=== PATIENT | male | born 1940 | race African-American/Black ===

== ENCOUNTER 2018-04-25 05:21 | Inpatient (IN) ==
[2018-04-25] MEDS ORDERED: MAGNESIUM SULF RIDER 2 GM in PREMIX 1 EACH IV PRN (06:03)
[2018-04-25] MEDS ORDERED: POTASSIUM CHLORIDE RIDER 10 MEQ in PREMIX 1 EACH IV PRN (06:03)
[2018-04-25] MEDS ORDERED: ASPIRIN 325 MG TABLET PO ONE (07:00)
[2018-04-25] MEDS ORDERED: diphenhydrAMINE CAP 25 MG CAPSULE PO ONE (07:00)
[2018-04-25] MEDS ORDERED: DIAZEPAM 5 MG TABLET PO ONE (07:00)
[2018-04-25] MEDS ORDERED: diphenhydrAMINE CAP 25 MG CAPSULE ONE (07:22)
[2018-04-25] MEDS ORDERED: DIAZEPAM 5 MG TABLET ONE (07:22)
[2018-04-25] MEDS ORDERED: ASPIRIN 325 MG TABLET ONE (07:22)
[2018-04-25] MEDS: SODIUM CHLORIDE 0.9% 1,000 ML IV SCH ×2 (07:25→20:44)
[2018-04-25 07:36] LABS: Basophils % 0.5 % (0.0-0.8); Eosinophils # 0.3 10*3/uL (0.0-0.87); Eosinophils % 4.6 % (0.00-10.9); Hematocrit 41.3 VOL% (42.0-52.0); Hemoglobin 13.8 GM/DL (14.0-18.0); Immature Granulocytes % 0.5 %; Immature Granulocytes Absolute 0.03 #; Lymphocytes # 1.8 10*3/uL (1.4-4.0); Lymphocytes % 28.6 % (21.2-54.2); Mean Corpuscular HGB Conc 33.4 GM/DL (32-36); Mean Corpuscular Hemoglobin 30 PG (27-34); Mean Corpuscular Volume 88.2 FL (87-102); Mean Platelet Volume 9.8 FL (9.6-12.0); Monocytes # 0.8 10*3/uL (0.11-0.8); Monocytes % 11.9 % (1.7-12.7); Neutrophils # 3.4 10*3/uL (1.4-7.4); Neutrophils % 53.9 % (38.7-73.9); Platelet Count 203 T/CUMM (130-400); Red Blood Count 4.68 MC/CUMM (3.8-5.5); Red Cell Distribution Width 14.1 % (9.3-17.3); White Blood Count 6.3 T/CUMM (4-12)
[2018-04-25 07:46] LABS: INR 1.1; PT Patient Result 11.2 SECS
[2018-04-25] MEDS ORDERED: HEPARIN/NACL 0.9% 2 UNITS/ML 1,000 ML IV ONE (09:11)
[2018-04-25] MEDS ORDERED: MIDAZOLAM 2 MG/2 ML VIAL ONE (09:17)
[2018-04-25] MEDS ORDERED: LIDOCAINE 1% 20 ML VIAL ONE (09:17)
[2018-04-25] MEDS ORDERED: fentaNYL 100 MCG/2 ML VIAL ONE (09:17)
[2018-04-25] MEDS ORDERED: NITROGLYCERIN SL 0.4 MG TABLET SL ONE ×3 (10:19→11:54)
[2018-04-25] MEDS ORDERED: ONDANSETRON 4 MG/2 ML VIAL IV PRN (10:26)
[2018-04-25] MEDS ORDERED: ZALEPLON 5 MG CAPSULE PO PRN (10:26)
[2018-04-25] MEDS ORDERED: ALBUTEROL/IPRATROPIUM 3 ML NEB RESP TX PRN (10:30)
[2018-04-25] MEDS ORDERED: NITROGLYCERIN SL 0.4 MG TABLET SL PRN (10:30)
[2018-04-25] MEDS: FUROSEMIDE 20 MG TABLET PO SCH (14:29)
[2018-04-25] MEDS: METOPROLOL TARTRATE 50 MG TABLET PO SCH (20:43)
[2018-04-26] MEDS: SODIUM CHLORIDE 0.9% 1,000 ML IV SCH ×3 (03:51→23:48)
[2018-04-26 05:14] LABS: Basophils % 0.6 % (0.0-0.8); Eosinophils # 0.3 10*3/uL (0.0-0.87); Hematocrit 39.8 VOL% (42.0-52.0); Hemoglobin 13.1 GM/DL (14.0-18.0); Immature Granulocytes % 0.6 %; Immature Granulocytes Absolute 0.04 #; Lymphocytes # 1.2 10*3/uL (1.4-4.0); Lymphocytes % 17.1 % (21.2-54.2); Mean Corpuscular HGB Conc 32.9 GM/DL (32-36); Mean Corpuscular Hemoglobin 30 PG (27-34); Mean Corpuscular Volume 89.8 FL (87-102); Mean Platelet Volume 10.1 FL (9.6-12.0); Monocytes # 0.7 10*3/uL (0.11-0.8); Monocytes % 10.3 % (1.7-12.7); Neutrophils # 4.5 10*3/uL (1.4-7.4); Neutrophils % 67.4 % (38.7-73.9); Platelet Count 175 T/CUMM (130-400); Red Blood Count 4.43 MC/CUMM (3.8-5.5); Red Cell Distribution Width 14.2 % (9.3-17.3); White Blood Count 6.7 T/CUMM (4-12)
[2018-04-26 05:26] LABS: Calcium 8.4 MG/DL (8.5-10.1); Osmolality,Calculated 281.1 MOS/KG (273-304); Potassium 3.8 MMOL/L (3.5-5.1)
[2018-04-26] MEDS: FUROSEMIDE 20 MG TABLET PO SCH (08:11)
[2018-04-26] MEDS: PRAVASTATIN 40 MG TABLET PO SCH (08:11)
[2018-04-26] MEDS: METOPROLOL TARTRATE 50 MG TABLET PO SCH ×2 (08:11→21:08)
[2018-04-26] MEDS: ASPIRIN 325 MG TABLET PO SCH (08:11)
[2018-04-26] MEDS ORDERED: DEXTROSE 50% 25 GM/50 ML VIAL IV PRN (08:46)
[2018-04-26] MEDS ORDERED: GLUCAGON 1 MG VIAL IM PRN (08:46)
[2018-04-26] MEDS ORDERED: MULTIVITAMIN (CENTRUM) TABLET PO SCH (09:00)
[2018-04-26] MEDS ORDERED: PANTOPRAZOLE 40 MG TABLET PO SCH (09:00)
[2018-04-26] MEDS ORDERED: SODIUM CHLORIDE 0.9% 1,000 ML IV SCH (09:00)
[2018-04-26] MEDS ORDERED: SERTRALINE 50 MG TABLET PO SCH (09:00)
[2018-04-26 09:10] LABS: ABG Base Excess -1.4 MMOL/L (-2.5-2.5); ABG HCO3 23.1 MMOL/L (20-26); ABG Oxygen Saturation 92.1 % (95-100); ABG PCO2 36.4 MM HG (35-48); ABG PH 7.405 (7.35-7.45); ABG PO2 64.8 MM HG (80-95); ABG TCO2 19.8 MMOL/L (23-27)
[2018-04-26] MEDS: CHLORHEXIDINE 0.12% ORAL RINSE 60 ML BOTTLE SWISH/SPIT SCH ×2 (13:37→21:10)
[2018-04-26] MEDS: CHLORHEXIDINE 4% SOLN 118 ML BOTTLE TOP SCH ×3 (13:37→21:09)
[2018-04-26] MEDS: ALUMINUM/MAGNES/SIMETH MAX STR 30 ML UDCUP PO PRN ×2 (17:29→21:09)
[2018-04-27 04:35] LABS: Basophils % 0.3 % (0.0-0.8); Eosinophils # 0.3 10*3/uL (0.0-0.87); Eosinophils % 3.2 % (0.00-10.9); Hematocrit 38.3 VOL% (42.0-52.0); Hemoglobin 12.6 GM/DL (14.0-18.0); Immature Granulocytes % 0.5 %; Immature Granulocytes Absolute 0.04 #; Lymphocytes # 1.6 10*3/uL (1.4-4.0); Lymphocytes % 18.5 % (21.2-54.2); Mean Corpuscular HGB Conc 32.9 GM/DL (32-36); Mean Corpuscular Hemoglobin 29 PG (27-34); Mean Corpuscular Volume 89.3 FL (87-102); Mean Platelet Volume 10.3 FL (9.6-12.0); Monocytes # 0.7 10*3/uL (0.11-0.8); Monocytes % 8.4 % (1.7-12.7); Neutrophils # 6.1 10*3/uL (1.4-7.4); Neutrophils % 69.1 % (38.7-73.9); Platelet Count 164 T/CUMM (130-400); Red Blood Count 4.29 MC/CUMM (3.8-5.5); Red Cell Distribution Width 14.4 % (9.3-17.3); White Blood Count 8.8 T/CUMM (4-12)
[2018-04-27] MEDS ORDERED: FUROSEMIDE 40 MG/4 ML VIAL ONE (05:50)
[2018-04-27 06:05] LABS: Albumin 3.3 G/DL (3.4-5.0); Bilirubin,Total 0.4 MG/DL (0.2-1.0); Calcium 8.1 MG/DL (8.5-10.1); Osmolality,Calculated 276.4 MOS/KG (273-304); Potassium 3.6 MMOL/L (3.5-5.1); Total Protein 6.9 G/DL (6.4-8.3)
[2018-04-27] MEDS ORDERED: FUROSEMIDE 40 MG/4 ML VIAL IV ONE ×3 (06:15→15:00)
[2018-04-27 06:17] LABS: ABG Base Excess -12.1 MMOL/L (-2.5-2.5); ABG Oxygen Saturation 83.7 % (95-100); ABG TCO2 20.1 MMOL/L (23-27); Allen Test Positive
[2018-04-27 06:19] LABS: ABG PCO2 78.2 MM HG (35-48); ABG PH 7.056 (7.35-7.45)
[2018-04-27] MEDS ORDERED: ETOMIDATE 20 MG/10 ML VIAL IV ONE (06:19)
[2018-04-27] MEDS ORDERED: VECURONIUM 10 MG VIAL IV ONE (06:19)
[2018-04-27] MEDS ORDERED: PROPOFOL 1,000 MG/100 ML BOTTLE IV ONE (06:23)
[2018-04-27] MEDS ORDERED: ADENOSINE 6 MG/2 ML VIAL ONE ×3 (06:24→09:26)
[2018-04-27] MEDS ORDERED: DILTIAZEM 100 MG VIAL.ADD IV ONE (06:30)
[2018-04-27] MEDS: PROPOFOL 1,000 MG/100 ML BOTTLE IV SCH ×2 (06:32→23:15)
[2018-04-27] MEDS: DILTIAZEM INJ 100 MG in SODIUM CHLORIDE 0.9% 100 ML IV SCH (06:32)
[2018-04-27] MEDS ORDERED: MORPHINE 4 MG/1 ML VIAL IV ONE (06:36)
[2018-04-27] MEDS ORDERED: DILTIAZEM 50 MG/10 ML VIAL IV ONE (06:55)
[2018-04-27] MEDS ORDERED: NITROGLYCERIN DRIP 50 MG/250 ML BOTTLE IV PRN (07:09)
[2018-04-27 07:36] LABS: ABG Base Excess -8.3 MMOL/L (-2.5-2.5); ABG HCO3 22.8 MMOL/L (20-26); ABG Oxygen Saturation 92.3 % (95-100); ABG PO2 88.3 MM HG (80-95); Allen Test Positive; Pt O2 Delivery Device Ventilator
[2018-04-27 07:39] LABS: ABG PH 7.118 (7.35-7.45)
[2018-04-27] MEDS: SODIUM CHLORIDE 0.9% 1,000 ML IV SCH (07:56)
[2018-04-27 08:24] LABS: Apearance,Urine CLEAR (Clear); Bilirubin,Urine Negative (Negative); Blood, Urine Small mg/dL (Negative); Glucose,Urine (UA) Negative (Negative); Ketones,Urine Negative (Negative); Mucus,Urine Occasional /LPF (Occasional); Nitrite,Urine Negative (Negative); Protein,Urine Negative; RBC,Urine 3 /HPF (0-4); Urine Color Yellow (Yellow); Urine Specific Gravity 1.006 (1.001-1.035); Urine Urobilinogen < 2.0 EU/DL (0.2-1.0); WBC,Urine 2 /HPF (0-6)
[2018-04-27] MEDS ORDERED: CEFUROXIME INJ 1,500 MG in SYRINGE 1 EACH IV ONE (08:46)
[2018-04-27] MEDS ORDERED: SODIUM BICARBONATE 50 MEQ/50 ML SYRINGE IV ONE ×2 (08:46→08:50)
[2018-04-27] MEDS ORDERED: METOPROLOL TARTRATE 5 MG/5 ML VIAL IV ONE (09:30)
[2018-04-27] MEDS: PRAVASTATIN 40 MG TABLET PO SCH (09:42)
[2018-04-27] MEDS: METOPROLOL TARTRATE 50 MG TABLET PO SCH ×2 (09:43→20:06)
[2018-04-27] MEDS: ASPIRIN 325 MG TABLET PO SCH (09:43)
[2018-04-27] MEDS: ENOXAPARIN 30 MG/0.3 ML SYRINGE SUBCUT SCH (09:43)
[2018-04-27 09:44] LABS: CKMB % 6.6 %
[2018-04-27 09:50] LABS: Troponin I Only 2.67 NG/ML (0.00-0.045)
[2018-04-27 09:53] LABS: ABG Base Excess -3.7 MMOL/L (-2.5-2.5); ABG HCO3 21.3 MMOL/L (20-26); ABG Oxygen Saturation 96.3 % (95-100); ABG PCO2 60.6 MM HG (35-48); ABG PH 7.235 (7.35-7.45); ABG TCO2 22.4 MMOL/L (23-27)
[2018-04-27] MEDS ORDERED: NOREPINEPHRINE 4 MG/4 ML VIAL IV ONE ×2 (10:48→10:52)
[2018-04-27] MEDS ORDERED: NOREPINEPHRINE 8 MG in SODIUM CHLORIDE 0.9% 242 ML IV PRN (10:51)
[2018-04-27] MEDS ORDERED: METOPROLOL TARTRATE 5 MG/5 ML VIAL IV PRN (11:23)
[2018-04-27] MEDS ORDERED: MIDAZOLAM 2 MG/2 ML VIAL IV PRN (14:31)
[2018-04-27 14:53] LABS: CKMB % 6.5 %
[2018-04-27 15:07] LABS: Troponin I Only 19.4 NG/ML (0.00-0.045)
[2018-04-27] MEDS: CHLORHEXIDINE 0.12% ORAL RINSE 60 ML BOTTLE SWISH/SPIT SCH ×2 (16:04→20:06)
[2018-04-27 21:04] LABS: CKMB % 3.4 %
[2018-04-27 21:09] LABS: Troponin I Only 23.3 NG/ML (0.00-0.045)
[2018-04-28 04:32] LABS: ABG Base Excess 3.8 MMOL/L (-2.5-2.5); ABG HCO3 27.8 MMOL/L (20-26); ABG PCO2 29.8 MM HG (35-48); ABG PH 7.541 (7.35-7.45); ABG TCO2 21.9 MMOL/L (23-27); Allen Test Positive; Pt O2 Delivery Device Ventilator
[2018-04-28] MEDS ORDERED: PAPAVERINE 60 MG/2 ML VIAL ONE (05:21)
[2018-04-28] MEDS ORDERED: VANCOMYCIN 1,000 MG VIAL ONE (05:21)
[2018-04-28 05:40] LABS: Basophils % 0.3 % (0.0-0.8); Eosinophils % 0.3 % (0.00-10.9); Hematocrit 42.5 VOL% (42.0-52.0); Immature Granulocytes % 0.8 %; Immature Granulocytes Absolute 0.09 #; Lymphocytes # 1.4 10*3/uL (1.4-4.0); Lymphocytes % 12.1 % (21.2-54.2); Mean Corpuscular HGB Conc 32.9 GM/DL (32-36); Mean Corpuscular Hemoglobin 29 PG (27-34); Mean Corpuscular Volume 89.1 FL (87-102); Mean Platelet Volume 10.6 FL (9.6-12.0); Monocytes # 1.1 10*3/uL (0.11-0.8); Neutrophils # 9.1 10*3/uL (1.4-7.4); Neutrophils % 77.5 % (38.7-73.9); Platelet Count 178 T/CUMM (130-400); Red Blood Count 4.77 MC/CUMM (3.8-5.5); Red Cell Distribution Width 14.6 % (9.3-17.3); White Blood Count 11.7 T/CUMM (4-12)
[2018-04-28 06:42] LABS: Calcium 8.5 MG/DL (8.5-10.1); Osmolality,Calculated 280.4 MOS/KG (273-304); Potassium 3.5 MMOL/L (3.5-5.1)
[2018-04-28] MEDS ORDERED: CEFUROXIME 1,500 MG VIAL ONE (07:32)
[2018-04-28 07:33] LABS: ABG Base Excess 1.6 MMOL/L (-2.5-2.5); ABG HCO3 25.8 MMOL/L (20-26); ABG Oxygen Saturation 96.5 % (95-100); ABG PCO2 36.9 MM HG (35-48); ABG PH 7.446 (7.35-7.45); ABG PO2 87.3 MM HG (80-95); Glucose Heart Surgery 136 MG/DL (74-106); Hematocrit Heart Surgery 41.3 PERCENT (42-52); Hemoglobin Heart Surgery 13.4 G/DL (14.0-18.0); Ionized Calcium Arterial 1.13 MMOL/L (1.21-1.46); PCO2 Patient Temp Arterial 36.9 MMHG; PH Patient Temp Arterial 7.446; PO2 Patient Temp Arterial 87.3 MM HG; Patient Temperature 37 CELCIUS; Potassium Heart/CVR 3.1 MMOL/L (3.5-5.1); Sodium Heart/CVR 139 MMOL/L (135-145)
[2018-04-28] MEDS ORDERED: EPINEPHrine 1 MG/10 ML SYRINGE ONE ×2 (07:59→13:58)
[2018-04-28] MEDS ORDERED: SODIUM BICARBONATE 50 MEQ/50 ML SYRINGE IV ONE ×9 (07:59→20:58)
[2018-04-28] MEDS ORDERED: CALCIUM CHLORIDE 1,000 MG/10 ML SYRINGE IV ONE (07:59)
[2018-04-28] MEDS ORDERED: POTASSIUM CHLORIDE RIDER 100 ML IV ONE (08:00)
[2018-04-28] MEDS ORDERED: ALBUMIN 5% 12.5 GM/250 ML VIAL IV ONE ×2 (08:00→12:38)
[2018-04-28] MEDS ORDERED: ATROPINE 1 MG/10 ML SYRINGE ONE (08:00)
[2018-04-28] MEDS ORDERED: PHENYLEPHRINE DRIP 40 MG/250 ML PREMIX IV ONE (08:02)
[2018-04-28] MEDS ORDERED: EPINEPHrine 1 MG/ML VIAL ONE ×3 (08:38→13:09)
[2018-04-28 09:05] LABS: Hematocrit Heart Surgery 28.4 PERCENT (42-52); Hemoglobin Heart Surgery 9.2 G/DL (14.0-18.0); PCO2 Patient Temp Venous 79.6 MM HG; PH Patient Temp Venous 7.101; PO2 Patient Temp Venous 39.1 MM HG; Potassium Heart/CVR 4.9 MMOL/L (3.5-5.1); VBG Base Excess -6.4 MEQ/L (0-4); VBG HCO3 18.7 MEQ/L (24-28); VBG Oxygen Saturation 62.7 %; VBG PCO2 79.6 MMHG (41-51); VBG PH 7.101; VBG PO2 39.1 MMHG (17-40)
[2018-04-28 09:25] LABS: ABG Base Excess -3.2 MMOL/L (-2.5-2.5); ABG HCO3 21.7 MMOL/L (20-26); ABG PCO2 26.8 MM HG (35-48); ABG PH 7.469 (7.35-7.45); ABG TCO2 17.7 MMOL/L (23-27); Glucose Heart Surgery 300 MG/DL (74-106); Hematocrit Heart Surgery 29.7 PERCENT (42-52); Hemoglobin Heart Surgery 9.6 G/DL (14.0-18.0); Ionized Calcium Arterial 0.92 MMOL/L (1.21-1.46); PCO2 Patient Temp Arterial 26.8 MMHG; PH Patient Temp Arterial 7.469; Patient Temperature 37 CELCIUS; Potassium Heart/CVR 2.9 MMOL/L (3.5-5.1); Sodium Heart/CVR 142 MMOL/L (135-145)
[2018-04-28] MEDS: METOPROLOL TARTRATE 50 MG TABLET PO SCH (09:28)
[2018-04-28] MEDS: ASPIRIN 325 MG TABLET PO SCH (09:28)
[2018-04-28] MEDS: DILTIAZEM INJ 100 MG in SODIUM CHLORIDE 0.9% 100 ML IV SCH (09:28)
[2018-04-28] MEDS ORDERED: CALCIUM CHLORIDE 1,000 MG/10 ML VIAL IV ONE ×2 (09:28→13:58)
[2018-04-28] MEDS: PROPOFOL 1,000 MG/100 ML BOTTLE IV SCH (09:28)
[2018-04-28] MEDS ORDERED: HEPARIN/NACL 0.9% 2 UNITS/ML 500 ML IV ONE (09:28)
[2018-04-28] MEDS: ENOXAPARIN 30 MG/0.3 ML SYRINGE SUBCUT SCH (09:28)
[2018-04-28] MEDS ORDERED: VECURONIUM 10 MG VIAL IV ONE (09:29)
[2018-04-28] MEDS: CHLORHEXIDINE 0.12% ORAL RINSE 60 ML BOTTLE SWISH/SPIT SCH (09:29)
[2018-04-28] MEDS ORDERED: TRANEXAMIC ACID 1,000 MG/10 ML VIAL ONE (09:29)
[2018-04-28] MEDS ORDERED: MIDAZOLAM 10 MG/2 ML VIAL ONE ×2 (09:29→17:11)
[2018-04-28] MEDS: PRAVASTATIN 40 MG TABLET PO SCH (09:29)
[2018-04-28] MEDS ORDERED: PHENYLEPHRINE 10 MG/1 ML VIAL IV ONE (09:29)
[2018-04-28] MEDS ORDERED: NITROGLYCERIN DRIP 50 MG/250 ML BOTTLE IV ONE (09:29)
[2018-04-28 09:59] LABS: ABG Base Excess 0.7 MMOL/L (-2.5-2.5); ABG HCO3 25.1 MMOL/L (20-26); ABG PCO2 29.4 MM HG (35-48); ABG PH 7.507 (7.35-7.45); ABG TCO2 21.4 MMOL/L (23-27); Glucose Heart Surgery 284 MG/DL (74-106); Hematocrit Heart Surgery 27.2 PERCENT (42-52); Hemoglobin Heart Surgery 8.8 G/DL (14.0-18.0); Ionized Calcium Arterial 0.84 MMOL/L (1.21-1.46); PH Patient Temp Arterial 7.522; Patient Temperature 36 CELCIUS; Potassium Heart/CVR 3.1 MMOL/L (3.5-5.1); Sodium Heart/CVR 145 MMOL/L (135-145)
[2018-04-28] MEDS ORDERED: SODIUM CHLORIDE 0.9% 2,000 ML IV ONE (10:07)
[2018-04-28] MEDS ORDERED: LACTATED RINGERS 1,000 ML IV ONE (10:07)
[2018-04-28] MEDS ORDERED: SODIUM CHLORIDE 0.9% 250 ML IV ONE ×2 (10:07)
[2018-04-28] MEDS ORDERED: SODIUM CHLORIDE 0.9% 100 ML IV ONE (10:07)
[2018-04-28] MEDS ORDERED: DEXAMETHASONE 10 MG/1 ML VIAL ONE (10:27)
[2018-04-28 10:37] LABS: Hematocrit Heart Surgery 26.7 PERCENT (42-52); Hemoglobin Heart Surgery 8.6 G/DL (14.0-18.0); PCO2 Patient Temp Venous 48.1 MM HG; PH Patient Temp Venous 7.297; PO2 Patient Temp Venous 39.8 MM HG; Potassium Heart/CVR 3.7 MMOL/L (3.5-5.1); VBG HCO3 21.6 MEQ/L (24-28); VBG Oxygen Saturation 73.9 %; VBG PCO2 50.5 MMHG (41-51); VBG PH 7.284; VBG PO2 42.7 MMHG (17-40)
[2018-04-28 10:56] LABS: Hematocrit Heart Surgery 25.7 PERCENT (42-52); Hemoglobin Heart Surgery 8.3 G/DL (14.0-18.0); PCO2 Patient Temp Venous 44.3 MM HG; PH Patient Temp Venous 7.356; PO2 Patient Temp Venous 39.8 MM HG; Potassium Heart/CVR 3.8 MMOL/L (3.5-5.1); VBG Base Excess -0.6 MEQ/L (0-4); VBG HCO3 23.7 MEQ/L (24-28); VBG Oxygen Saturation 80.5 %; VBG PCO2 48.8 MMHG (41-51); VBG PH 7.328; VBG PO2 45.7 MMHG (17-40)
[2018-04-28 11:30] LABS: Hematocrit Heart Surgery 23.9 PERCENT (42-52); Hemoglobin Heart Surgery 7.7 G/DL (14.0-18.0); PCO2 Patient Temp Venous 35.7 MM HG; PH Patient Temp Venous 7.401; PO2 Patient Temp Venous 33.5 MM HG; Potassium Heart/CVR 3.9 MMOL/L (3.5-5.1); VBG Base Excess -2.2 MEQ/L (0-4); VBG HCO3 22.3 MEQ/L (24-28); VBG Oxygen Saturation 74.9 %; VBG PCO2 39.3 MMHG (41-51); VBG PH 7.372; VBG PO2 38.6 MMHG (17-40)
[2018-04-28] MEDS ORDERED: THROMBIN TOPICAL (RECOMBINANT) 5,000 UNIT VIAL TOP ONE (12:22)
[2018-04-28 12:30] LABS: ABG Oxygen Saturation 86.6 % (95-100); ABG PCO2 62.6 MM HG (35-48); ABG PH 7.293 (7.35-7.45); ABG PO2 56.6 MM HG (80-95); ABG TCO2 29.1 MMOL/L (23-27); Glucose Heart Surgery 299 MG/DL (74-106); Hematocrit Heart Surgery 20.4 PERCENT (42-52); Hemoglobin Heart Surgery 6.5 G/DL (14.0-18.0); Ionized Calcium Arterial 1.16 MMOL/L (1.21-1.46); PCO2 Patient Temp Arterial 62.6 MMHG; PH Patient Temp Arterial 7.293; PO2 Patient Temp Arterial 56.6 MM HG; Patient Temperature 37 CELCIUS; Potassium Heart/CVR 3.5 MMOL/L (3.5-5.1); Sodium Heart/CVR 158 MMOL/L (135-145)
[2018-04-28] MEDS ORDERED: LIDOCAINE 1% 5 ML VIAL ONE (12:36)
[2018-04-28] MEDS ORDERED: DEXTROSE 5% KCL 20 MEQ 20 MEQ/1,000 ML BAG IV ONE (12:36)
[2018-04-28] MEDS ORDERED: PROTAMINE SULFATE 250 MG/25 ML VIAL IV ONE (12:37)
[2018-04-28] MEDS ORDERED: HEPARIN 10,000 UNIT/10 ML VIAL ONE (12:37)
[2018-04-28] MEDS ORDERED: methylPREDNISolone SOD SUC 1,000 MG/8 ML VIAL ONE (12:37)
[2018-04-28] MEDS ORDERED: MAGNESIUM SULFATE 1 GM/2 ML VIAL ONE (12:37)
[2018-04-28] MEDS ORDERED: ALBUMIN 25% 25 GM/100 ML VIAL IV ONE (12:37)
[2018-04-28] MEDS ORDERED: MANNITOL 12.5 GM/50 ML VIAL IV ONE (12:38)
[2018-04-28] MEDS ORDERED: FUROSEMIDE 20 MG/2 ML VIAL ONE (12:38)
[2018-04-28] MEDS ORDERED: PROTAMINE SULFATE 50 MG/5 ML VIAL IV ONE ×3 (12:38→21:10)
[2018-04-28] MEDS ORDERED: POTASSIUM CHLORIDE 20 MEQ/10 ML VIAL ONE (12:39)
[2018-04-28] MEDS ORDERED: PHENYLEPHRINE 1 MG/10 ML SYRINGE IV ONE (12:39)
[2018-04-28] MEDS ORDERED: ALBUTEROL 2.5 MG/3 ML NEB RESP TX ONE (12:47)
[2018-04-28 12:56] LABS: ABG Base Excess -13.8 MMOL/L (-2.5-2.5); ABG HCO3 13.5 MMOL/L (20-26); ABG Oxygen Saturation 94.2 % (95-100); ABG PCO2 48.4 MM HG (35-48); ABG PO2 90.4 MM HG (80-95); ABG TCO2 14.9 MMOL/L (23-27); Glucose Heart Surgery 273 MG/DL (74-106); Hematocrit Heart Surgery 21.9 PERCENT (42-52); Ionized Calcium Arterial 1.19 MMOL/L (1.21-1.46); PCO2 Patient Temp Arterial 48.4 MMHG; PH Patient Temp Arterial 7.103; PO2 Patient Temp Arterial 90.4 MM HG; Patient Temperature 37 CELCIUS; Potassium Heart/CVR 3.2 MMOL/L (3.5-5.1); Sodium Heart/CVR 150 MMOL/L (135-145)
[2018-04-28 12:58] LABS: ABG PH 7.103 (7.35-7.45)
[2018-04-28] MEDS ORDERED: INSULIN REGULAR 100 UNIT/ML IV ONE (13:32)
[2018-04-28] MEDS ORDERED: MAGNESIUM SULF RIDER 4 GM in PREMIX 1 EACH IV PRN (13:32)
[2018-04-28] MEDS ORDERED: MIDAZOLAM 2 MG/2 ML VIAL IV PRN (13:32)
[2018-04-28] MEDS ORDERED: ACETAMINOPHEN 650 MG SUPP RECTAL PRN (13:32)
[2018-04-28] MEDS ORDERED: NITROPRUSSIDE 100 MG in DEXTROSE 5% 250 ML IV PRN (13:32)
[2018-04-28] MEDS ORDERED: CALCIUM CHLORIDE 1,000 MG/10 ML SYRINGE IV PRN (13:32)
[2018-04-28] MEDS ORDERED: VECURONIUM 10 MG VIAL IV PRN ×2 (13:32)
[2018-04-28] MEDS ORDERED: ONDANSETRON 4 MG/2 ML VIAL IV PRN (13:32)
[2018-04-28] MEDS ORDERED: MORPHINE 4 MG/1 ML VIAL IV PRN (13:32)
[2018-04-28] MEDS ORDERED: MORPHINE 10 MG/1 ML VIAL IV PRN (13:32)
[2018-04-28] MEDS ORDERED: INSULIN REGULAR 100 UNIT/ML IV PRN (13:32)
[2018-04-28] MEDS ORDERED: POTASSIUM CHLORIDE RIDER 10 MEQ in PREMIX 1 EACH IV PRN (13:32)
[2018-04-28] MEDS ORDERED: MIDAZOLAM 10 MG/2 ML VIAL IV PRN (13:32)
[2018-04-28] MEDS ORDERED: MAGNESIUM SULF RIDER 2 GM in PREMIX 1 EACH IV PRN (13:32)
[2018-04-28] MEDS ORDERED: DEXTROSE 50% 25 GM/50 ML VIAL IV PRN ×2 (13:32)
[2018-04-28] MEDS: LACTATED RINGERS 250 ML IV PRN ×10 (13:45→20:41)
[2018-04-28] MEDS: PHENYLEPHRINE DRIP 40 MG/250 ML PREMIX IV PRN ×3 (13:50→20:34)
[2018-04-28 13:57] LABS: ABG Base Excess -15.6 MMOL/L (-2.5-2.5); ABG HCO3 12.2 MMOL/L (20-26); ABG Oxygen Saturation 86.1 % (95-100); ABG PCO2 57.8 MM HG (35-48); ABG PO2 72.7 MM HG (80-95); Glucose Heart Surgery 201 MG/DL (74-106); Hematocrit Heart Surgery 22.8 PERCENT (42-52); Hemoglobin Heart Surgery 7.3 G/DL (14.0-18.0); Potassium Heart/CVR 3.4 MMOL/L (3.5-5.1)
[2018-04-28 13:58] LABS: ABG PH 7.019 (7.35-7.45)
[2018-04-28] MEDS ORDERED: SODIUM CHLORIDE 0.45% 1,000 ML IV SCH ×2 (14:00)
[2018-04-28] MEDS ORDERED: INSULIN REGULAR DRIP 100 ML IV SCH (14:00)
[2018-04-28 14:01] LABS: Basophils % 0.2 % (0.0-0.8); Eosinophils % 0.2 % (0.00-10.9); Hematocrit 23.1 VOL% (42.0-52.0); Hemoglobin 7.3 GM/DL (14.0-18.0); Immature Granulocytes % 3.4 %; Immature Granulocytes Absolute 0.42 #; Lymphocytes # 2.1 10*3/uL (1.4-4.0); Lymphocytes % 16.8 % (21.2-54.2); Mean Corpuscular HGB Conc 31.6 GM/DL (32-36); Mean Corpuscular Hemoglobin 30 PG (27-34); Mean Corpuscular Volume 95.5 FL (87-102); Mean Platelet Volume 10.3 FL (9.6-12.0); Monocytes # 0.8 10*3/uL (0.11-0.8); Monocytes % 6.5 % (1.7-12.7); NRBC # 0.02 10*3/uL; Neutrophils # 9.1 10*3/uL (1.4-7.4); Neutrophils % 72.9 % (38.7-73.9); Platelet Count 110 T/CUMM (130-400); Red Blood Count 2.42 MC/CUMM (3.8-5.5); Red Cell Distribution Width 14.8 % (9.3-17.3); White Blood Count 12.5 T/CUMM (4-12)
[2018-04-28 14:26] LABS: INR 1.8; PT Patient Result 18.4 SECS
[2018-04-28 14:31] LABS: Albumin 1.9 G/DL (3.4-5.0); Bilirubin,Total 1.5 MG/DL (0.2-1.0); Calcium 9.3 MG/DL (8.5-10.1); Osmolality,Calculated 315.2 MOS/KG (273-304); Potassium 3.6 MMOL/L (3.5-5.1); Total Protein 3.6 G/DL (6.4-8.3)
[2018-04-28 14:32] LABS: Partial Thromboplastin Time 81.1 SECS (0-40)
[2018-04-28] MEDS: POTASSIUM CHLORIDE RIDER 20 MEQ in PREMIX 1 EACH IV PRN ×3 (14:45→17:58)
[2018-04-28 14:47] LABS: ABG Base Excess -13.9 MMOL/L (-2.5-2.5); ABG HCO3 13.5 MMOL/L (20-26); ABG Oxygen Saturation 86.5 % (95-100); ABG PCO2 47.9 MM HG (35-48); ABG PO2 63.9 MM HG (80-95); ABG TCO2 14.7 MMOL/L (23-27); Glucose Heart Surgery 189 MG/DL (74-106); Hematocrit Heart Surgery 28.5 PERCENT (42-52); Hemoglobin Heart Surgery 9.2 G/DL (14.0-18.0); Potassium Heart/CVR 2.8 MMOL/L (3.5-5.1)
[2018-04-28 14:48] LABS: ABG PH 7.112 (7.35-7.45)
[2018-04-28 14:50] LABS: CKMB % 6.6 %
[2018-04-28 14:52] LABS: Troponin I Only 89.9 NG/ML (0.00-0.045)
[2018-04-28] MEDS: ALBUMIN 5% 12.5 GM in PREMIX 1 EACH IV PRN ×3 (15:00→17:17)
[2018-04-28] MEDS ORDERED: FUROSEMIDE 40 MG/4 ML VIAL IV ONE ×2 (15:12→21:15)
[2018-04-28] MEDS ORDERED: FUROSEMIDE 40 MG/4 ML VIAL ONE (15:15)
[2018-04-28 15:54] LABS: Band Neutrophils 10 % (0-10); Lymphocytes 18 % (20-55); Nucleated Red Blood Cells 1 (0-5); Segmented Neutrophils 68 % (50-85); Total Cells Counted 100
[2018-04-28 15:55] LABS: Microcytosis 2+; Platelet Estimate Decreased; Polychromasia Slight
[2018-04-28 15:58] LABS: ABG Base Excess -12.8 MMOL/L (-2.5-2.5); ABG HCO3 14.3 MMOL/L (20-26); ABG Oxygen Saturation 86.8 % (95-100); ABG PCO2 43.3 MM HG (35-48); ABG PO2 63.2 MM HG (80-95); ABG TCO2 14.7 MMOL/L (23-27); Glucose Heart Surgery 151 MG/DL (74-106); Potassium Heart/CVR 3.8 MMOL/L (3.5-5.1)
[2018-04-28 17:20] LABS: ABG Base Excess -11.1 MMOL/L (-2.5-2.5); ABG HCO3 15.5 MMOL/L (20-26); ABG Oxygen Saturation 92.6 % (95-100); ABG PCO2 42.5 MM HG (35-48); ABG PO2 76.5 MM HG (80-95); ABG TCO2 15.7 MMOL/L (23-27); Glucose Heart Surgery 107 MG/DL (74-106); Hematocrit Heart Surgery 25.8 PERCENT (42-52); Hemoglobin Heart Surgery 8.3 G/DL (14.0-18.0); Potassium Heart/CVR 3.3 MMOL/L (3.5-5.1)
[2018-04-28 17:22] LABS: ABG PH 7.197 (7.35-7.45)
[2018-04-28] MEDS ORDERED: SODIUM CHLORIDE 0.9% 1,000 ML IV PRN ×3 (18:35→22:30)
[2018-04-28 18:40] LABS: ABG Base Excess -11.8 MMOL/L (-2.5-2.5); ABG PCO2 43.3 MM HG (35-48); ABG PO2 70.2 MM HG (80-95); ABG TCO2 15.4 MMOL/L (23-27); Glucose Heart Surgery 71 MG/DL (74-106); Hematocrit Heart Surgery 24.8 PERCENT (42-52); Potassium Heart/CVR 4.1 MMOL/L (3.5-5.1)
[2018-04-28 18:42] LABS: ABG PH 7.177 (7.35-7.45)
[2018-04-28 20:23] LABS: ABG Base Excess -14.1 MMOL/L (-2.5-2.5); ABG HCO3 13.3 MMOL/L (20-26); ABG Oxygen Saturation 85.5 % (95-100); ABG PCO2 44.6 MM HG (35-48); ABG PO2 63.6 MM HG (80-95); ABG TCO2 14.1 MMOL/L (23-27)
[2018-04-28 20:24] LABS: ABG PH 7.124 (7.35-7.45)
[2018-04-28 20:31] LABS: ABG Base Excess -14.1 MMOL/L (-2.5-2.5); ABG HCO3 13.3 MMOL/L (20-26); ABG Oxygen Saturation 85.5 % (95-100); ABG PCO2 44.6 MM HG (35-48); ABG PO2 63.6 MM HG (80-95); ABG TCO2 14.1 MMOL/L (23-27); Glucose Heart Surgery 135 MG/DL (74-106); Hemoglobin Heart Surgery 8.7 G/DL (14.0-18.0); Potassium Heart/CVR 3.9 MMOL/L (3.5-5.1)
[2018-04-28 20:33] LABS: ABG PH 7.124 (7.35-7.45)
[2018-04-28] MEDS ORDERED: SODIUM BICARB INJ 150 MEQ in DEXTROSE 5% 850 ML IV SCH (21:00)
[2018-04-28] MEDS ORDERED: CHLORHEXIDINE 0.12% ORAL RINSE 60 ML BOTTLE SWISH/SPIT SCH (21:00)
[2018-04-28] MEDS ORDERED: CEFUROXIME INJ 1,500 MG in SYRINGE 1 EACH IV SCH (21:34)
[2018-04-28 22:00] LABS: ABG Base Excess -14.6 MMOL/L (-2.5-2.5); ABG PCO2 42.7 MM HG (35-48); ABG PO2 83.5 MM HG (80-95); ABG TCO2 13.6 MMOL/L (23-27); Glucose Heart Surgery 106 MG/DL (74-106); Hematocrit Heart Surgery 23.5 PERCENT (42-52); Hemoglobin Heart Surgery 7.5 G/DL (14.0-18.0); Potassium Heart/CVR 3.8 MMOL/L (3.5-5.1)
[2018-04-28 22:02] LABS: ABG PH 7.122 (7.35-7.45)
[2018-04-28] MEDS ORDERED: PHENYLEPHRINE INJ 160 MG in SODIUM CHLORIDE 0.9% 234 ML IV PRN (22:50)
[2018-04-29] MEDS ORDERED: FUROSEMIDE 100 MG/10 ML VIAL IV ONE (00:10)
[2018-04-29 00:11] LABS: ABG Base Excess -16.2 MMOL/L (-2.5-2.5); ABG HCO3 12.4 MMOL/L (20-26); ABG Oxygen Saturation 92.7 % (95-100); ABG PO2 91.9 MM HG (80-95); ABG TCO2 13.7 MMOL/L (23-27); Glucose Heart Surgery 87 MG/DL (74-106); Hemoglobin Heart Surgery 7.4 G/DL (14.0-18.0); Potassium Heart/CVR 3.8 MMOL/L (3.5-5.1)
[2018-04-29] MEDS ORDERED: CALCIUM CHLORIDE 1,000 MG/10 ML SYRINGE IV ONE (00:11)
[2018-04-29 00:12] LABS: ABG PH 7.088 (7.35-7.45)
[2018-04-29] MEDS ORDERED: SODIUM CHLORIDE 0.9% 1,000 ML IV PRN (00:13)
[2018-04-29] MEDS ORDERED: SODIUM BICARBONATE 50 MEQ/50 ML SYRINGE IV ONE ×2 (00:17→03:21)
[2018-04-29] MEDS ORDERED: AMINOCAPROIC ACID INJ 5,000 MG in SODIUM CHLORIDE 0.9% 250 ML IV ONE (00:58)
[2018-04-29] MEDS ORDERED: AMINOCAPROIC ACID INJ 5,000 MG in SODIUM CHLORIDE 0.9% 230 ML IV SCH (01:00)
[2018-04-29 01:06] LABS: CKMB % 5.7 %
[2018-04-29] MEDS ORDERED: FUROSEMIDE INJ 100 MG in SODIUM CHLORIDE 0.9% 90 ML IV SCH (02:00)
[2018-04-29] MEDS: LACTATED RINGERS 250 ML IV PRN ×2 (03:00→03:15)
[2018-04-29 03:13] LABS: ABG Base Excess -17.4 MMOL/L (-2.5-2.5); ABG HCO3 11.3 MMOL/L (20-26); ABG Oxygen Saturation 90.3 % (95-100); ABG PCO2 41.5 MM HG (35-48); ABG PO2 77.6 MM HG (80-95); ABG TCO2 11.8 MMOL/L (23-27); Glucose Heart Surgery 120 MG/DL (74-106); Hematocrit Heart Surgery 30.8 PERCENT (42-52); Potassium Heart/CVR 3.9 MMOL/L (3.5-5.1)
[2018-04-29 03:15] LABS: ABG PH 7.076 (7.35-7.45)
[2018-04-29] MEDS ORDERED: NOREPINEPHRINE 16 MG in SODIUM CHLORIDE 0.9% 234 ML IV PRN (03:20)
[2018-04-29] MEDS: ALBUMIN 5% 12.5 GM in PREMIX 1 EACH IV PRN ×2 (03:25→03:30)
[2018-04-29 03:47] LABS: Basophils % 0.1 % (0.0-0.8); Hematocrit 28.8 VOL% (42.0-52.0); Hemoglobin 8.9 GM/DL (14.0-18.0); Immature Granulocytes % 1.8 %; Immature Granulocytes Absolute 0.17 #; Lymphocytes # 1.1 10*3/uL (1.4-4.0); Lymphocytes % 11.3 % (21.2-54.2); Mean Corpuscular HGB Conc 30.9 GM/DL (32-36); Mean Corpuscular Hemoglobin 30 PG (27-34); Mean Corpuscular Volume 95.4 FL (87-102); Mean Platelet Volume 10.3 FL (9.6-12.0); Monocytes # 0.9 10*3/uL (0.11-0.8); Monocytes % 9.5 % (1.7-12.7); NRBC # 0.05 10*3/uL; Neutrophils # 7.3 10*3/uL (1.4-7.4); Neutrophils % 77.3 % (38.7-73.9); Platelet Count 111 T/CUMM (130-400); Red Blood Count 3.02 MC/CUMM (3.8-5.5); Red Cell Distribution Width 17.9 % (9.3-17.3); White Blood Count 9.4 T/CUMM (4-12)
[2018-04-29 05:37] LABS: Band Neutrophils 16 % (0-10); Lymphocytes 12 % (20-55); Macrocytosis 1+; Platelet Estimate Decreased; Segmented Neutrophils 63 % (50-85); Total Cells Counted 100
[2018-04-29 07:17] VITALS: BP 68/42
== END 2018-04-29 04:15 | disposition expired | DRG 233 ==
LOC: N.CL 05:21 → N.TELES 12:18 → N.CC 04-27 06:08 → N.CVR 04-28 07:31
PROVIDERS: ADMIT Internal Medicine Cardiovascular Disease; ATTEND Internal Medicine Cardiovascular Disease
PROC: CLCCHCL (ICD-10-PCS; 2018-04-25 09:45)